=== PATIENT | male | born 1955 | race Caucasian/White ===

== ENCOUNTER 2019-05-13 07:11 | Day surgery (SDC) | payer MEDICAID ==
[~2019-05-13 07:11] MED LIST: AMLODIPINE10 MG PO; AMOXICILLIN/CL875 MG PO; ATOMOXETINE PO; HYDROMORPHON4 MG PO; MOTRIN800 MG PO; PERCOCET 10/31 COMBO PO; PERCOCET1 TA4 PO
[2019-05-13] MEDS ORDERED: PERCOCET 10/31 COMBO PO (09:32)
[2019-05-13 10:49] VITALS: BP 180/99
== END 2019-05-13 09:43 | disposition home or self-care (01) ==
LOC: ORM 07:11
PROVIDERS: ATTEND Anesthesiology Pain Medicine
DX: M65.161 Other infective (teno)synovitis, right knee (principal); M54.5 Low back pain; V89.2XXS Person injured in unspecified motor-vehicle accident, traffic, sequela

== ENCOUNTER 2019-05-27 06:37 | Day surgery (SDC) | payer MEDICAID ==
[~2019-05-27] VITALS: Ht 180.3 cm; Wt 176.9 kg
[2019-05-27] MEDS ORDERED: ANTIBIOTIC PO (06:57)
[2019-05-27 08:15] VITALS: BP 139/69
[2019-06-16] MEDS ORDERED: PERCOCET 10/31 COMBO PO (09:56)
== END 2019-05-27 08:25 | disposition home or self-care (01) ==
LOC: ORM 06:37
PROVIDERS: ATTEND Anesthesiology Pain Medicine
DX: M65.161 Other infective (teno)synovitis, right knee (principal)

== ENCOUNTER 2019-09-16 | Day surgery (SDC) | payer OTHER ==
[~2019-09-16] MED LIST changes: +ANTIBIOTIC PO
[2019-09-16] MEDS ORDERED: AMLODIPINE BESY10 MG PO (07:46)
[2019-09-16] MEDS ORDERED: PERCOCET 10/31 COMBO PO (09:04)
[2019-10-13] MEDS ORDERED: PERCOCET 10/31 COMBO PO (10:19)
[2019-11-10] MEDS ORDERED: PERCOCET 10/31 COMBO PO (11:37)
[2020-01-05] MEDS ORDERED: PERCOCET 10/31 COMBO PO (08:38)
[2020-02-02] MEDS ORDERED: OXYCODO-APAP1 TA2 PO (10:01)
[2020-03-01] MEDS ORDERED: OXYCODO-APAP1 TA2 PO (08:57)
[2020-03-29] MEDS ORDERED: OXYCODO-APAP1 TA2 PO (09:14)
[2020-04-26] MEDS ORDERED: OXYCODO-APAP1 TA2 PO (08:09)
[2020-05-24] MEDS ORDERED: OXYCODO-APAP1 TA2 PO (08:50)
[2020-06-21] MEDS ORDERED: OXYCODO-APAP1 TA2 PO (08:53)
[2020-07-19] MEDS ORDERED: OXYCODO-APAP1 TA2 PO (08:39)
== END 2019-09-16 12:10 | disposition home or self-care (01) ==
DX: M25.562 Pain in left knee (principal); M25.561 Pain in right knee

== ENCOUNTER 2019-12-09 | Day surgery (SDC) | payer OTHER ==
[~2019-12-09] MED LIST changes: +AMLODIPINE BESY10 MG PO
[2019-12-09] MEDS ORDERED: PERCOCET 10/31 COMBO PO (09:38)
[2020-01-05] MEDS ORDERED: PERCOCET 10/31 COMBO PO (08:38)
[2020-02-02] MEDS ORDERED: OXYCODO-APAP1 TA2 PO (10:01)
[2020-03-01] MEDS ORDERED: OXYCODO-APAP1 TA2 PO (08:57)
[2020-03-29] MEDS ORDERED: OXYCODO-APAP1 TA2 PO (09:14)
[2020-04-26] MEDS ORDERED: OXYCODO-APAP1 TA2 PO (08:09)
[2020-05-24] MEDS ORDERED: OXYCODO-APAP1 TA2 PO (08:50)
[2020-06-21] MEDS ORDERED: OXYCODO-APAP1 TA2 PO (08:53)
[2020-07-19] MEDS ORDERED: OXYCODO-APAP1 TA2 PO (08:39)
== END 2019-12-09 09:45 | disposition home or self-care (01) ==
DX: M17.11 Unilateral primary osteoarthritis, right knee (principal)